=== PATIENT | male | born 1995 | race Caucasian/White ===

== ENCOUNTER 2017-11-23 17:23 | Emergency (ER) | payer OTHER ==
[2017-11-23] MEDS ORDERED: METOCLOPRAMIDE 10 MG/2 ML VIAL IVP ONE (18:03)
[2017-11-23] MEDS ORDERED: DEXAMETHASONE 10 MG/ML VIAL IVP ONE (18:03)
--- NOTE | 2017-11-23 18:03 | EDPHY ---
General Time Seen by Provider: 11/23/17 17:55 Narrative: CHIEF COMPLAINT: Headache HISTORY OF PRESENT ILLNESS: Patient complains of right-sided headache that started yesterday around 10:00 a.m.. Is right hemispheric and now behind the right eye. He describes it as a "strong pressure, and I can feel my pulse in it." No trauma or injury. No neck pain or stiffness. No fever. No visual disturbance. No vomiting. It feels similar to his previous headaches, for which she has been diagnosed with migraines. He has had these periodically, but today it progressed to be more severe than typical. No sudden onset of the headache. No worst headache of his life. He has no other complaints otherwise. No improved with Advil. No other associated complaints or modifying factors. REVIEW OF SYSTEMS: Ten systems reviewed and are negative unless otherwise noted in the HPI PCP: None locally SPECIALISTS: None locally PAST MEDICAL HISTORY: Migraine headaches PAST SURGICAL HISTORY: No surgical history SOCIAL HISTORY: Nonsmoker. Lives here as a [employer] student. Originally from [facility] FAMILY HISTORY: Noncontributory EXAMINATION General Appearance: Alert, no distress Head: normocephalic, atraumatic. No Stallings sign. No raccoon eyes. Eyes: Pupils equal and round, no conjunctival pallor or injection. EOM symmetric. No nystagmus. ENT, Mouth: Mucous membranes moist Neck: Normal inspection, supple, non-tender Respiratory: Lungs are clear to auscultation no wheezing rhonchi or crackles Cardiovascular: Regular rate and rhythm. No murmur. Gastrointestinal: Abdomen is soft and nontender Back: non-tender, no bony abnormalities Neurological: GCS 15. Cranial nerves 2-12 grossly intact. A&O, nonfocal, normal gait. No pronator drift. Normal [id number]. Skin: Warm and dry, no rash no petechiae or purpura Extremities: Nontender, no pedal edema Psychiatric: Mood and affect normal DIFFERENTIAL DIAGNOSES: Including but not limited to migraine headache, cluster headache, cephalgia, meningitis, subarachnoid hemorrhage, subdural hematoma MDM: 6:00 p.m. Headache of 2 days duration that is right hemispheric and consistent with previous headaches that have been diagnosed as migraine. He does describe a possible cluster type headache. He has no meningismus. Vital signs are within normal limits. No trauma. No known history of aneurysm. He does not appear ill. His examination is well within normal limits with no neuro deficits and no meningeal signs. I have ordered medications for his headache as well as oxygen by nasal cannula for the possible cluster headache. I do not feel he warrants any imaging at this time. 7:05 p.m. Patient re-evaluated. He says that he feels much better than time of arrival. He feels somewhat somnolent from the promethazine. He is asking to go home at this time but asking for more medication 1st. I have ordered 1 dose of Toradol to be given. I will provide a prescription for Fioricet. We discussed follow up with the on-call neurologist, and I provided this information. We discussed ED precautions for sudden change in headache, worsening pain, vomiting, neck pain or stiffness, fever. He is comfortable this plan and asking to be discharged home. He is discharged home stable condition SUPERVISION: This patient was independently evaluated without direct involvement of or examination by the attending physician. - History Smoking Status: Current every day smoker - Objective Vital Signs: Initial Vital Signs Temperature (C) 98.1 F 11/23/17 17:26 Heart Rate 65 11/23/17 17:26 Respiratory Rate 16 11/23/17 17:26 Blood Pressure 127/74 H 11/23/17 17:26 O2 Sat (%) 96 11/23/17 17:26 O2 Delivery Mode Room Air Allergies/Adverse Reactions: No Known Allergies Allergy (Verified 11/23/17 17:26) Home Medications: Medication Instructions Recorded NO HOME MEDS 09/15/13 Codeine/Butalbital/ASA/Caffein 1 each PO Q4 PRN #11 capsule 11/23/17 [Fiorinal with Codeine #3 Cap] Medications Given: Discontinued Medications Dexamethasone (Decadron Injection) 10 mg IVP EDNOW ONE Stop: 11/23/17 18:04 Last Admin: 11/23/17 18:40 Dose: 10 mg Diphenhydramine HCl (Benadryl Injection) 50 mg IVP EDNOW ONE Stop: 11/23/17 18:04 Last Admin: 11/23/17 18:37 Dose: 50 mg Sodium Chloride (Ns) 1,000 mls @ 0 mls/hr IV ONCE ONE PRN Reason: Wide Open Stop: 11/23/17 18:33 Last Admin: 11/23/17 18:36 Dose: 1,000 mls Ketorolac Tromethamine (Toradol) 30 mg IVP EDNOW ONE Stop: 11/23/17 19:09 Last Admin: 11/23/17 19:17 Dose: 30 mg Metoclopramide HCl (Reglan Injection) 10 mg IVP EDNOW ONE Stop: 11/23/17 18:04 Last Admin: 11/23/17 18:43 Dose: 10 mg Departure - Departure Disposition: Home, Routine, Self-Care Clinical Impression: Cephalgia Qualifiers: Headache type: unspecified Headache chronicity pattern: acute headache Intractability: not intractable Qualified Code(s): R51 - Headache Condition: Good Instructions: Cluster Headache (ED), Migraine Headache (ED), Acute Headache (ED ) Additional Instructions: 1. Benadryl 25-50 mg every 6 hr as needed for headache 2. Fioricet as prescribed as needed for headache 3. Contact the on-call neurologist as provided for outpatient follow-up 4. ED precautions for sudden change in headache, neck pain or stiffness, fever, vomiting or intractable headache Referrals: Juanito Khalil DO [Medical Doctor] - As per Instructions Stand Alone Forms: School Excuse Prescriptions: Codeine/Butalbital/ASA/Caffein [Fiorinal with Codeine #3 Cap] 1 each PO Q4 PRN # 11 capsule PRN Reason: Headache
[2017-11-23] MEDS ORDERED: NS 1,000 ML IV ONE (18:32)
[2017-11-23] MEDS ORDERED: KETOROLAC 30 MG/1 ML SDV IVP ONE (19:08)
[2017-11-23 19:46] VITALS: BP 117/67; PULSE 57; RESP 18; TEMP 97.9; O2SAT 97
== END 2017-11-23 19:46 | disposition home or self-care (01) ==
DX: R51 Headache (principal); E86.9 Volume depletion, unspecified
CPT/HCPCS: 96374; J1100; J1200; J1885; J2765

== ENCOUNTER 2017-12-16 14:54 | Emergency (ER) | payer OTHER ==
--- NOTE | 2017-12-16 15:13 | EDPHY ---
H & P Stated Complaint: ST, swollen neck Time Seen by Provider: 12/16/17 15:04 - Personal History Current Tetanus/Diphtheria Vaccine: Yes Current Tetanus Diphtheria and Acellular Pertussis (TDAP): Yes Tetanus Vaccine Date: < 10 YEARS - Medical/Surgical History Hx Asthma: No Hx Chronic Respiratory Disease: No Hx Diabetes: No Hx Cardiac Disease: No Hx Renal Disease: No Hx Cirrhosis: No Hx Alcoholism: No Hx HIV/AIDS: No Hx Splenectomy or Spleen Trauma: No Other PMH: MIGRAINES - Social History Smoking Status: Current some day smoker Constitutional: Initial Vital Signs Temperature (C) 37 C 12/16/17 14:58 Heart Rate 63 12/16/17 14:58 Respiratory Rate 16 12/16/17 14:58 Blood Pressure 137/75 H 12/16/17 14:58 O2 Sat (%) 97 12/16/17 14:58 O2 Delivery Mode Room Air Allergies/Adverse Reactions: No Known Allergies Allergy (Verified 12/16/17 14:57) Home Medications: Medication Instructions Recorded Amoxicillin/Clavulanate Pot 875 mg PO BID #20 tab 12/16/17 [Augmentin 875 MG TAB (RX)] Ibuprofen 12/16/17 methylPREDNISolone [Medrol Dose 1 each PO AD #1 ea 12/16/17 Feliberto] Medical Decision Making - Diagnostics Imaging: Discussed imaging studies w/ calliope player Radiologist, I viewed and interpreted images myself ED Course/Re-evaluation: CHIEF COMPLAINT: Swollen neck HISTORY OF PRESENT ILLNESS: The patient is a 22 y/o male complaining of a painful swollen neck and difficulty breathing due to the swelling. He had a right-sided root canal 2 years ago and is unsure if this is related. Denies recent injury or trauma, sore throat, abdominal pain, paresthesias, numbness, fever. REVIEW OF SYSTEMS: A 10 point review of systems was performed and is negative with the exception of the elements mentioned in the history of present illness. PHYSICAL EXAM: HR, BP, O2 Sat, RR. Temp noted General Appearance: Alert, well hydrated, appropriate, and non-toxic appearing. Head: Atraumatic without scalp tenderness or obvious injury Eyes: Pupils equal, round, reactive to light and accommodation, EOMI, no trauma , no injection. Ears: Clear bilaterally, no perforation, normal landmarks Nose: Atraumatic, no rhinorrhea, clear. Throat: There is no erythema or exudates, no lesions, normal tonsils, mucus membranes moist. Neck: Right anterior cervical neck mass that is well circumscribed, freely moveable and very painful. Supple, no lymphadenopathy. Respiratory: No retractions, no distress, no wheezes, and no accessory muscle use. Lungs are clear to auscultation bilaterally. Cardiovascular: Regular rate and rhythm, no murmurs, rubs, or gallops. Bilateral carotid, radial, dorsalis pedis, and posterior tibial pulses intact. Good capillary refill all extremities. Gastrointestinal: Abdomen is soft, nontender, non-distended, no masses, no rebound, no guarding, no peritoneal signs. Musculoskeletal: Normal active ROM of all extremities, atraumatic. Neurological: Alert, appropriate, and interactive. The patient has normal DTRs and non-focal cranial nerves, motor, sensory, and cerebellar exam. Skin: No rashes, good turgor, no nodules on palpation. Past medical history: Migraines Past surgical history: Right-sided root canal Family history: Denies Social history: Lives in [place], single, student at DIAGNOSTICS/PROCEDURES/CRITICAL CARE TIME: Soft tissue neck CT: No abscess, one necrotic lymph node and several lymph nodes bilaterally, these are reactive and not suggestive of a lymphoma DIFFERENTIAL DIAGNOSIS: The differential diagnosis for the patient's neck pain included but was not limited to necrotic lymph node, soft tissue injury, musculoskeletal pain, epidural abscess, herniated disk, spinal fracture, and intra-abdominal causes including urinary system. MEDICAL DECISION MAKING: The patient is a 22 y/o male with a history of a right-sided root canal presenting with a painful, swollen neck and difficulty breathing due to the swelling. On exam he has a right anterior cervical neck mass that is well circumscribed, freely moveable and very painful. Labs and soft tissue neck CT ordered. 1L IV NS administered. 1616: Spoke with radiologist regarding patient's neck CT, there is a necrotic lymph node that is reactive and is not a lymphoma. 1621: Consulted with Dr. Navarro's PA, ENT, regarding this patient. Patient will be prescribed Augmentin and a Medrol dose pack. They will see him in 10 days when his prescriptions are completed. 1624: Reassessed patient and discussed imaging and laboratory findings. I have discussed the prescriptions and follow up visit with ENT. Return precautions provided; patient is comfortable with this plan. - Data Points Laboratory Results: Laboratory Results 12/16/17 15:40 12/16/17 15:40 12/16/17 12/16/17 12/16/17 15:47 15:40 15:40 WBC 7.86 10^3/uL 10^3/uL (3.80-9.50) RBC 4.86 10^6/uL 10^6/uL (4.40-6.38) Hgb 15.1 g/dL g/dL (13.7-17.5) POC Hgb 15.3 gm/dL gm/dL (13.7-17.5) Hct 42.0 % % (40.0-51.0) POC Hct 45 % % (40-51) MCV 86.4 fL fL (81.5-99.8) MCH 31.1 pg pg (27.9-34.1) MCHC 36.0 g/dL g/dL (32.4-36.7) RDW 10.9 % L % (11.5-15.2) Plt Count 189 10^3/uL 10^3/uL (150-400) MPV 10.8 fL fL (8.7-11.7) Neut % (Auto) 72.2 % % (39.3-74.2) Lymph % (Auto) 19.7 % % (15.0-45.0) [place] % (Auto) 6.9 % % (4.5-13.0) Eos % (Auto) 0.5 % L % (0.6-7.6) Baso % (Auto) 0.6 % % (0.3-1.7) Nucleat RBC Rel Count 0.0 % % (0.0-0.2) Absolute Neuts (auto) 5.67 10^3/uL 10^3/uL (1.70-6.50) Absolute Lymphs (auto) 1.55 10^3/uL 10^3/uL (1.00-3.00) Absolute Monos (auto) 0.54 10^3/uL 10^3/uL (0.30-0.80) Absolute Eos (auto) 0.04 10^3/uL 10^3/uL (0.03-0.40) Absolute Basos (auto) 0.05 10^3/uL 10^3/uL (0.02-0.10) Absolute Nucleated RBC 0.00 10^3/uL 10^3/uL (0-0.01) Immature Gran % 0.1 % % (0.0-1.1) Immature Gran # 0.01 10^3/uL 10^3/uL (0.00-0.10) POC Sodium 142 mEq/L mEq/L (135-145) Sodium 143 mEq/L mEq/L (135-145) POC Potassium 3.9 mEq/L mEq/L (3.3-5.0) Potassium 4.1 mEq/L mEq/L (3.5-5.2) POC Chloride 102 mEq/L mEq/L (97-110) Chloride 104 mEq/L mEq/L (97-110) Carbon Dioxide 29 mEq/l mEq/l (22-31) Anion Gap 10 mEq/L mEq/L (8-16) POC BUN 12 mg/dL mg/dL (7-23) BUN 13 mg/dL mg/dL (7-23) Creatinine 0.8 mg/dL mg/dL (0.7-1.3) POC Creatinine 0.8 mg/dL mg/dL (0.7-1.3) Estimated GFR > 60 Glucose 102 mg/dL H mg/dL (70-100) POC Glucose 111 mg/dL H mg/dL (70-100) Calcium 9.5 mg/dL mg/dL (8.5-10.4) Medications Given: Discontinued Medications Sodium Chloride (Ns) 1,000 mls @ 0 mls/hr IV EDNOW ONE; Wide Open PRN Reason: Protocol Stop: 12/16/17 15:29 Last Admin: 12/16/17 15:42 Dose: 1,000 mls Point of Care Test Results: 12/16/17 15:47 POC Sodium 142 POC Potassium 3.9 POC Chloride 102 POC BUN 12 POC Creatinine 0.8 POC Glucose 111 H Departure - Departure Disposition: Home, Routine, Self-Care Clinical Impression: Necrotizing inflammation of lymph node, Enlarged lymph node in neck Condition: Good Instructions: Lymphadenopathy (ED) Additional Instructions: 1. Take Augmentin as prescribed. 2. Take the Medrol dose pack as prescribed. 3. Follow up with an ENT in 10 days, you have been referred to Dr. Navarro. 4. Return to the Emergency Department for fever, chest pain, shortness of breath , increasing pain or other worsening of condition. Referrals: NONE *PRIMARY CARE P,. [Primary Care Provider] - As per Instructions Mynor Navarro MD [Medical Doctor] - As per Instructions Prescriptions: Amoxicillin/Clavulanate Pot [Augmentin 875 MG TAB (RX)] 875 mg PO BID #20 tab methylPREDNISolone [Medrol Dose Feliberto] 1 each PO AD #1 ea Report Scribed for: Erwin Decker Report Scribed by: Inocencia Eli Date of Report: 12/16/17 Time of Report: 15:15
[2017-12-16] MEDS ORDERED: NS 1,000 ML IV ONE (15:28)
[2017-12-16] MEDS ORDERED: IOPAMIDOL (ISOVUE-300) 100 ML BTL ONE (15:49)
[2017-12-16 15:52] LABS: PLATELET COUNT 189 10^3/uL (150-400)
[2017-12-16 16:45] VITALS: BP 132/74
== END 2017-12-16 16:45 | disposition home or self-care (01) ==
DX: R59.0 Localized enlarged lymph nodes (principal); F17.200 Nicotine dependence, unspecified, uncomplicated
CPT/HCPCS: 82947-QW; Q9967

== ENCOUNTER 2018-01-20 11:01 | Emergency (ER) | payer OTHER ==
--- NOTE | 2018-01-20 11:09 | EDPHY ---
H & P Stated Complaint: hernandez/hx of migraines/ibuproen not helping Source: Patient, Old records Exam Limitations: No limitations - Personal History Current Tetanus Diphtheria and Acellular Pertussis (TDAP): Yes Tetanus Vaccine Date: < 10 YEARS - Medical/Surgical History Hx Asthma: No Hx Chronic Respiratory Disease: No Hx Diabetes: No Hx Cardiac Disease: No Hx Renal Disease: No Hx Cirrhosis: No Hx Alcoholism: No Hx HIV/AIDS: No Hx Splenectomy or Spleen Trauma: No Other PMH: MIGRAINES - Social History Smoking Status: Current some day smoker Time Seen by Provider: 01/20/18 11:08 HPI/ROS: HPI: This is a 22-year-old male who presents with Chief Complaint: hernandez/hx of migraines/ibuprofen not helping Location: Frontal Quality: Aching Duration: 1 day Signs and Symptoms: no fever, + nausea, no vomiting, + photophobia, + noise sensitivity, no neck stiffness, no ear pain, no tinnitus, no nasal congestion, no sinus pressure, no weakness, no radiation, no aura Timing: Constant Severity: [id number] Context: 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 Patient has been taking ibuprofen without helping his symptoms. 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 Patient reports that this is a typical presentation for has headaches. He was diagnosed with migraine headaches by his primary care provider in [employer] but does not have any headache or anti abortive medications at home. He denies any seasonal allergies/upper respiratory symptoms/fever/vomiting/neck stiffness. Patient reports that he had an MRI of his brain in September of this year approximately 3 months ago that was normal per patient. He denies any dizziness/weakness/radiation. He has not eaten any food or drink any liquids today. Modifying Factors: Ibuprofen, no relief Comment: ROS: see HPI Constitutional: No fever, no chills, no weight loss Eyes: No blurred vision Respiratory: No shortness of breath, no cough Cardiovascular: No chest pain, no palpitations Gastrointestinal: No nausea, no vomiting, no diarrhea, no hematemesis, no blood in stool Genitourinary: No dysuria, no blood in urine Extremities: No myalgias, no edema Neurologic: No weakness, no numbness Skin: No rashes, no petechiae Hematologic: No bruising, no bleeding MEDICAL/SURGICAL/SOCIAL HISTORY: Medical history: Migraine headaches Surgical history: Denies Social history: Tobacco user. Family history noncontributory. CONSTITUTIONAL: Extremely well-appearing young adult [place] male, awake and alert, no obvious distress HEENT: Atraumatic and normocephalic, PERRL, EOMI. Nares patent; no rhinorrhea; no nasal mucosal edema. Tympanic membranes clear. Oropharynx clear, no exudate and moist pink mucosa. Airway patent. No lymphadenopathy. No meningismus. Cardiovascular: Normal S1/S2, regular rate, regular rhythm, without murmur rub or gallop. PULMONARY/CHEST: Symmetrical and nontender. Clear to auscultation bilaterally. Good air movement. No accessory muscle usage. ABDOMEN: Soft, nondistended, nontender, no rebound, no guarding, no peritoneal signs, no masses or organomegaly. No CVAT. EXTREMITIES: 2/2 pulses, strength 5/5, no deformities, no clubbing, no cyanosis or edema. NEUROLOGICAL: no focal neuro deficits. GCS 15. SKIN: Warm and dry, no erythema. no rash. Good capillary refill. (Domonique Staton) Constitutional: Initial Vital Signs Temperature (C) 36.5 C 01/20/18 11:04 Heart Rate 57 L 01/20/18 11:04 Respiratory Rate 18 01/20/18 11:04 Blood Pressure 121/70 H 01/20/18 11:04 O2 Sat (%) 95 01/20/18 11:04 O2 Delivery Mode Room Air Allergies/Adverse Reactions: No Known Allergies Allergy (Verified 01/20/18 11:02) Home Medications: Medication Instructions Recorded Acet/Caffeine/Buta Fioricet 1 each PO Q6 PRN #12 tab 01/20/18 [Fioricet (*)] Ibuprofen 01/20/18 Ondansetron Odt [Zofran Odt 4 mg 4 mg PO Q4 PRN #12 tab 01/20/18 (*)] Medical Decision Making ED Course/Re-evaluation: Vital signs reviewed and stable upon arrival. No systemic signs. This is a tension type versus migraine type headache. No neurological deficits and imaging of the brain is not indicated. 1120: Given 1 L normal saline, IV promethazine, IV Decadron, IV Toradol 1240: Reassessed patient who reports that headache is now only a 2/10. Asking to be discharged home. Given a prescription for Fioricet and Zofran. Neurology referral for headache evaluation and management. This patient was seen under the supervision of my secondary supervising physician. I evaluated care for this patient independently. Discussed this patient with Dr. Avery who did not see the patient. (Domonique Staton) Differential Diagnosis: Headache including but not limited to subarachnoid hemorrhage, migraine headache , tension headache and infectious causes such as meningitis, pharyngitis and sinusitis. (Domonique Staton) - Data Points Medications Given: Discontinued Medications Dexamethasone (Decadron Injection) 8 mg IVP EDNOW ONE Stop: 01/20/18 11:14 Last Admin: 01/20/18 11:33 Dose: 8 mg Sodium Chloride (Ns) 1,000 mls @ 3,000 mls/hr IV EDNOW ONE Stop: 01/20/18 11:32 Last Admin: 01/20/18 11:33 Dose: 1,000 mls Ketorolac Tromethamine (Toradol) 15 mg IVP/IM EDNOW ONE Stop: 01/20/18 11:14 Last Admin: 01/20/18 11:30 Dose: 15 mg Promethazine HCl (Phenergan) 12.5 mg IVP EDNOW ONE Stop: 01/20/18 11:14 Last Admin: 01/20/18 11:27 Dose: 12.5 mg Departure - Departure Disposition: Home, Routine, Self-Care Clinical Impression: Tension-type headache, not intractable Qualifiers: Headache chronicity pattern: acute headache Qualified Code(s): G44.209 - Tension-type headache, unspecified, not intractable Condition: Good Instructions: Migraine Headache (ED), Tension Headache (ED) Additional Instructions: Consume a minimum of 8-10 glasses of water or electrolyte fluid replacement drinks that include Gatorade, Powerade, Pedialyte. Eat a bland diet for the next 48 hours and then slowly advance as tolerated. Take Zofran 1 tab every 4 hours as needed for nausea, vomiting. Take Fioricet 1 tab every 6 hr as needed for headache not relieved by Ibuprofen. It would benefit you to establish care with Neurology to discuss your chronic headaches. Return to the ER immediately if you have progressive headaches, neurologic deficits, gait abnormality, visual disturbance, slurred speech, or any other symptom that concerns you. Referrals: Cuate Yusuf DO [Doctor of Osteopathy] - As per Instructions Stand Alone Forms: School Excuse Prescriptions: Acet/Caffeine/Buta Fioricet [Fioricet (*)] 1 each PO Q6 PRN #12 tab PRN Reason: Headache Ondansetron Odt [Zofran Odt 4 mg (*)] 4 mg PO Q4 PRN #12 tab PRN Reason: Nausea/Vomiting, Use 1st
[2018-01-20] MEDS ORDERED: NS 1,000 ML IV ONE (11:13)
[2018-01-20] MEDS ORDERED: DEXAMETHASONE 4 MG/ML VIAL IVP ONE (11:13)
[2018-01-20] MEDS ORDERED: PROMETHAZINE HCL 25 MG/ML INJ IVP ONE (11:13)
[2018-01-20] MEDS ORDERED: KETOROLAC 15 MG/1 ML SDV IVP/IM ONE (11:13)
[2018-01-20 13:11] VITALS: BP 123/67
== END 2018-01-20 13:10 | disposition home or self-care (01) ==
DX: G44.209 Tension-type headache, unspecified, not intractable (principal); F17.200 Nicotine dependence, unspecified, uncomplicated
CPT/HCPCS: 96374; J1100; J1885; J2550

== ENCOUNTER 2018-02-24 10:23 | Emergency (ER) | payer OTHER ==
[2018-02-24] MEDS ORDERED: METOCLOPRAMIDE 10 MG/2 ML VIAL IVP ONE (11:22)
[2018-02-24] MEDS ORDERED: DEXAMETHASONE 4 MG/ML VIAL IVP ONE (11:22)
[2018-02-24] MEDS ORDERED: KETOROLAC 15 MG/1 ML SDV IVP/IM ONE (11:22)
[2018-02-24] MEDS ORDERED: NS 1,000 ML IV ONE (11:22)
--- NOTE | 2018-02-24 11:22 | EDPHY ---
H & P Stated Complaint: Migraine since 11pm. - Personal History Current Tetanus Diphtheria and Acellular Pertussis (TDAP): Yes Tetanus Vaccine Date: < 10 YEARS - Medical/Surgical History Hx Asthma: No Hx Chronic Respiratory Disease: No Hx Diabetes: No Hx Cardiac Disease: No Hx Renal Disease: No Hx Cirrhosis: No Hx Alcoholism: No Hx HIV/AIDS: No Hx Splenectomy or Spleen Trauma: No Other PMH: MIGRAINES - Social History Smoking Status: Former smoker Time Seen by Provider: 02/24/18 11:08 HPI/ROS: CHIEF COMPLAINT: Migraine since 11:00 p.m. Yesterday HISTORY OF PRESENT ILLNESS: 22-year-old male history of chronic headaches complaining of non thunderclap headache since 11:00 p.m. Last evening not relieved with 600 mg of ibuprofen. He has so she had photophobia audio phobia, nausea. No vomiting. No otalgia. No nuchal rigidity. No major minor head injury or manipulation. No aura. No radiation. He has had evaluation including imaging study was a head previously which have been negative. No coagulopathic disorder history. PRIMARY CARE PROVIDER: REVIEW OF SYSTEMS: A ten point review of systems was performed and is negative with the exception of the items mentioned in the HPI PAST MEDICAL & SURGICAL HISTORY: Chronic migraine SOCIAL HISTORY: Daily smoker, student PHYSICAL EXAM (Prior to examination, patient consented to physical exam, hands were washed and my usual and customary physical exam procedures followed) 1) GENERAL: Well-developed, well-nourished, alert and oriented. Appears nontoxic answering questions appropriately. 2) HEAD: Normocephalic, atraumatic 3) HEENT: Pupils equal, round, reactive to light bilaterally. Sclera anicteric. Nasopharynx, oropharynx, clear, no lesions. Ears bilaterally with normal tympanic membranes. 4) NECK: Full range of motion, no meningeal signs. 5) LUNGS: Clear auscultation bilaterally, no wheezes, no rhonchi, no retractions. 6) HEART: Regular rate and rhythm, no murmur, no heave, no gallop. 7) ABDOMEN: No guarding, no rebound, no focal tenderness, negative McBurney's, negative Min's, negative Rovsing's, negative peritoneal sign, 8) MUSCULOSKELETAL: Moving all extremities, no focal areas of tenderness, no obvious trauma. No peripheral edema or discoloration. 9) BACK: No CVA tenderness, no midline vertebral tenderness, no fluctuance, no step-off, no obvious trauma, no visual or palpable abnormality. 10) SKIN: No rash, no petechiae. 11) Psychiatric: Patient is oriented X 3, there is no agitation. 12) NEURO: Awake, alert, and oriented to person, place and time. Answers questions appropriately. There were no obvious focal neurologic abnormalities. No cerebellar dysfunction. Cranial nerves 2 through to 12 intact. Normal steady gait. Upper and lower extremities bilaterally with strength 5 / 5, reflexes 2+. DIFFERENTIAL DIAGNOSIS: In no particular order, including but not limited to subarachnoid hemorrhage, migraine headache, tension headache and infectious causes such as meningitis, pharyngitis and sinusitis. The patient understands that this diagnosis is provisional and can never be 100% accurate. Usual and customary warnings were given concerning the clinical impression and all the patient's questions were answered. The patient was instructed to return to the emergency department should her symptoms worsen or return, or develop any new symptoms, otherwise to followup as directed in discharge instructions. This is a partial list of diagnoses considered. These considerations are based on history, physical exam, past history and reassessment. (Jonny Crouch) Constitutional: Initial Vital Signs Temperature (C) 36.8 C 02/24/18 10:24 Heart Rate 56 L 02/24/18 10:24 Respiratory Rate 16 02/24/18 10:24 Blood Pressure 111/76 02/24/18 10:24 O2 Sat (%) 96 02/24/18 10:24 O2 Delivery Mode Room Air Allergies/Adverse Reactions: No Known Allergies Allergy (Verified 01/20/18 11:02) Home Medications: Medication Instructions Recorded Ibuprofen 01/20/18 Medical Decision Making ED Course/Re-evaluation: 11:20 a.m.: I have reviewed the patient's old medical records. At this time in absence of neurologic deficits and the presence of a normal neurologic exam, nonfocal, will hold on imaging studies. Will treat symptomatically. He is agreeable with this plan. I saw this patient independently based on established practice protocols. Care of patient under supervision of secondary supervising physician Dr Shefali Jacobsen. 1:15 p.m.: Re-evaluation, sleeping, states that he is pain free, he would like to be discharged. I re-evaluated him. He has a nonfocal exam. Plan will be discharge. I think that subarachnoid hemorrhage, intracranial mass, malignancy , less than likely in this patient at this time. I do not think that the benefits of CT imaging, lumbar puncture, outweigh the risks in this patient. ( Jonny Crouch) Other Provider: The patient was evaluated and managed by the Physician Boiler Operators Supervisor. I discussed the patient's presentation and course with the midlevel provider with them and agree with the evaluation. My co-signature indicates that I have reviewed this chart and I agree with the findings and plan of care as documented. I am the secondary supervising physician. (Shefali Jacobsen) - Data Points Medications Given: Discontinued Medications Dexamethasone (Decadron Injection) 8 mg IVP EDNOW ONE Stop: 02/24/18 11:23 Last Admin: 02/24/18 11:29 Dose: 8 mg Sodium Chloride (Ns) 1,000 mls @ 3,000 mls/hr IV EDNOW ONE Stop: 02/24/18 11:41 Last Admin: 02/24/18 11:29 Dose: 1,000 mls Ketorolac Tromethamine (Toradol) 15 mg IVP/IM EDNOW ONE Stop: 02/24/18 11:23 Last Admin: 02/24/18 11:30 Dose: 15 mg Metoclopramide HCl (Reglan Injection) 10 mg IVP EDNOW ONE Stop: 02/24/18 11:23 Last Admin: 02/24/18 11:30 Dose: 10 mg Departure - Departure Disposition: Home, Routine, Self-Care Clinical Impression: Headache Condition: Good Instructions: Acute Headache (ED) Additional Instructions: THANK YOU FOR YOUR VISIT TO OUR EMERGENCY DEPARTMENT (ED). YOU WERE SEEN TODAY BECAUSE OF A HEADACHE. YOU MAY HAVE HAD LAB TESTS, A CT SCAN, MRI OR EVEN A LUMBAR PUNCTURE (COMMONLY REFERRED TO A SPINAL TAP). WE CANNOT ALWAYS FIND THE EXACT CAUSE OF YOUR SYMPTOMS DURING YOUR VISIT TO THE ED. RETURN TO THE ED IMMEDIATELY IF YOUR HEADACHE WORSENS, IF YOU DEVELOP A FEVER, NECK PAIN OR NECK STIFFNESS, OR IF YOU BECOME CONFUSED OR ABNORMALLY DROWSY. Referrals: Zbigniew Quigley MD [Medical Doctor] - 2-3 days, call for appt. (Dr. Quigley is a neurologist) Stand Alone Forms: School Excuse
[2018-02-24 13:33] VITALS: BP 115/75
== END 2018-02-24 13:00 | disposition home or self-care (01) ==
DX: R51 Headache (principal); Z87.891 Personal history of nicotine dependence
CPT/HCPCS: 96374; J1100; J1885; J2765

== ENCOUNTER 2018-08-08 14:52 | Emergency (ER) | payer OTHER ==
[2018-08-08] MEDS ORDERED: NS 1,000 ML IV ONE ×2 (15:34→15:46)
[2018-08-08] MEDS ORDERED: ONDANSETRON 4 MG/2 ML VIAL IVP ONE (15:34)
--- NOTE | 2018-08-08 15:47 | EDPHY ---
H & P Time Seen by Provider: 08/08/18 15:34 HPI/ROS: CHIEF COMPLAINT: Nausea and collapsed HISTORY OF PRESENT ILLNESS: Patient is a history of migraine headaches. He had some low back pain yesterday but no weakness or numbness in extremities. Today he woke up at 10:[address] dizziness like lightheaded and nausea but no headache. He went to the library to study and when he was walking back to the cafeteria around 1:30 p.m. He felt very weak and sort of of collapsed on the ground but did not have syncope or loss of consciousness. Patient presents now with primarily nausea and dizziness. He has a very slight headache which is not localized. No neck stiffness or neck pain. No vertigo or being off balance or spinning sensation. REVIEW OF SYSTEMS: Eye: no change in vision ENT: no sore throat or ear symptoms or loss of hearing Cardiac: no chest pain or syncope Pulmonary: no cough or SOB Abdomen: Vomiting but no diarrhea or abdominal pain Musculoskeletal: HPI no neck pain Skin: no rash Neuro: HPI no weakness or numbness in extremities or being off balance or trouble with speech or thought or motor or sensory. Constitutional: no fever : no urinary symptoms A comprehensive 10 point review of systems is otherwise negative aside from elements mentioned in the history of present illness. PAST MEDICAL HISTORY: Migraine headaches Social history: Student in [employer] General Appearance: Alert and conversant, cooperative. Eyes: No scleral icterus. ENT, Mouth: Dry mucous membranes. Respiratory: Normal respiratory effort, breath sounds equal, lungs are clear to auscultation. Cardiovascular: Regular rate and rhythm. Gastrointestinal: Abdomen is soft and non tender. No rebound or guarding, no McBurney's point tenderness. Neurological: Alert, face symmetric, normal motor and sensory in extremities. 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 Skin: Warm and dry, no rashes. Musculoskeletal: No meningeal signs, no stiff neck. No lower lumbar spinal tenderness to palpation. Psychiatric: Not agitated. Emergency Department course/MDM: EKG, Zofran 4 mg IV, normal saline hydration. Patient has normal neurologic exam here. 1705: Feels better, tolerating oral fluids, no further nausea or vomiting. Stable for discharge which is what the patient requests, I think that is reasonable. Smoking Status: Current some day smoker Constitutional: Initial Vital Signs Temperature (C) 36.7 C 08/08/18 15:00 Heart Rate 82 08/08/18 15:00 Respiratory Rate 18 08/08/18 15:00 Blood Pressure 145/93 H 08/08/18 15:00 O2 Sat (%) 95 08/08/18 15:00 O2 Delivery Mode Room Air Allergies/Adverse Reactions: No Known Allergies Allergy (Verified 08/08/18 15:03) Home Medications: Medication Instructions Recorded Ibuprofen 01/20/18 Medical Decision Making - Diagnostics EKG Interpretation: 12-lead EKG interpreted by me; official reading is in computer system. My interpretation is sinus rhythm with borderline right axis, early repolarization. Normal intervals. Differential Diagnosis: Differential considered including but not limited to appendicitis, meningitis, migraine headache, viral syndrome, food poisoning - Data Points Laboratory Results: Laboratory Results 08/08/18 15:30 08/08/18 15:30 08/08/18 08/08/18 15:30 15:30 WBC 7.10 10^3/uL 10^3/uL (3.80-9.50) RBC 5.73 10^6/uL 10^6/uL (4.40-6.38) Hgb 17.8 g/dL H g/dL (13.7-17.5) Hct 49.0 % % (40.0-51.0) MCV 85.5 fL fL (81.5-99.8) MCH 31.1 pg pg (27.9-34.1) MCHC 36.3 g/dL g/dL (32.4-36.7) RDW 11.0 % L % (11.5-15.2) Plt Count 197 10^3/uL 10^3/uL (150-400) MPV 10.5 fL fL (8.7-11.7) Neut % (Auto) 71.1 % % (39.3-74.2) Lymph % (Auto) 23.4 % % (15.0-45.0) Coos % (Auto) 4.4 % L % (4.5-13.0) Eos % (Auto) 0.1 % L % (0.6-7.6) Baso % (Auto) 0.7 % % (0.3-1.7) Nucleat RBC Rel Count 0.0 % % (0.0-0.2) Absolute Neuts (auto) 5.05 10^3/uL 10^3/uL (1.70-6.50) Absolute Lymphs (auto) 1.66 10^3/uL 10^3/uL (1.00-3.00) Absolute Monos (auto) 0.31 10^3/uL 10^3/uL (0.30-0.80) Absolute Eos (auto) 0.01 10^3/uL L 10^3/uL (0.03-0.40) Absolute Basos (auto) 0.05 10^3/uL 10^3/uL (0.02-0.10) Absolute Nucleated RBC 0.00 10^3/uL 10^3/uL (0-0.01) Immature Gran % 0.3 % % (0.0-1.1) Immature Gran # 0.02 10^3/uL 10^3/uL (0.00-0.10) Sodium 140 mEq/L mEq/L (135-145) Potassium 4.2 mEq/L mEq/L (3.5-5.2) Chloride 103 mEq/L mEq/L (97-110) Carbon Dioxide 23 mEq/l mEq/l (22-31) Anion Gap 14 mEq/L mEq/L (6-14) BUN 16 mg/dL mg/dL (7-23) Creatinine 0.9 mg/dL mg/dL (0.7-1.3) Estimated GFR > 60 Glucose 96 mg/dL mg/dL (70-100) Calcium 10.1 mg/dL mg/dL (8.5-10.4) Medications Given: Discontinued Medications Sodium Chloride (Ns) 1,000 mls @ 0 mls/hr IV EDNOW ONE; Wide Open PRN Reason: Protocol Stop: 08/08/18 15:35 Last Admin: 08/08/18 15:38 Dose: 1,000 mls Sodium Chloride (Ns) 1,000 mls @ 0 mls/hr IV EDNOW ONE; Wide Open PRN Reason: Protocol Stop: 08/08/18 15:47 Last Admin: 08/08/18 16:15 Dose: 1,000 mls Ondansetron HCl (Zofran) 4 mg IVP EDNOW ONE Stop: 08/08/18 15:35 Last Admin: 08/08/18 15:38 Dose: 4 mg Departure - Departure Disposition: Home, Routine, Self-Care Clinical Impression: Nausea & vomiting Qualifiers: Vomiting type: unspecified Vomiting Intractability: non-intractable Qualified Code(s): R11.2 - Nausea with vomiting, unspecified Condition: Good Instructions: Acute Nausea and Vomiting (ED) Referrals: [facility],. [Clinic] - As per Instructions
[2018-08-08 15:57] LABS: PLATELET COUNT 197 10^3/uL (150-400)
--- NOTE | 2018-08-08 16:25 | CPEKG ---
Test Reason : OPEN Blood Pressure : / mmHG Vent. Rate : 084 BPM Atrial Rate : 082 BPM P-R Int : 153 ms QRS Dur : 096 ms QT Int : 372 ms P-R-T Axes : -03 107 008 degrees QTc Int : 440 ms Sinus rhythm Probable left atrial enlargement Borderline right axis deviation ST elev, probable normal early repol pattern Confirmed by Parminder Carter ([id number]) on 08/08/2018 4:24:59 PM Referred By: Confirmed By:Parminder Carter
[2018-08-08 17:17] VITALS: BP 127/71
== END 2018-08-08 17:16 | disposition home or self-care (01) ==
DX: R11.2 Nausea with vomiting, unspecified (principal); E86.9 Volume depletion, unspecified; G43.909 Migraine, unspecified, not intractable, without status migrainosus
CPT/HCPCS: 96374; J2405